=== PATIENT | male | born 1985 | race Caucasian/White ===

== ENCOUNTER 2024-07-12 08:41 | Day surgery (SDC) | payer OTHER ==
[~2024-07-12] VITALS: Ht 181 cm; Wt 71.2 kg
[2024-07-12] VITALS (9 sets, daily range): BP systolic 101–127; BP diastolic 73–87
[~2024-07-12 08:41] MED LIST: BENADRYL25 MG PO; CeFAZolin Sodium 2,000 MG in NS 100 ML IV SCH; FISH OIL 1,2001 EAC7 PO; Lactated Ringer's 1,000 ML IV SCH; MELO7.5 PO; MULVITA PO; Vitamin D1000 UNI1 PO; ZYRTEC10 M2 PO; [UNRECOGNIZED DRUG - OTHER] PO
[2024-07-12] MEDS ORDERED: CeFAZolin Sodium 2,000 MG VIAL ONE (09:23)
--- NOTE | 2024-07-12 09:31 | NUR ---
Patient confirms NPO status and agrees with scheduled surgery. History, Chart, Medications and Allergies reviewed before start of procedure. Mother sitting at bedside with patient. Patient cooperative and follows instructions.
[2024-07-12] MEDS ORDERED: Bupivacaine 0.5% HCl 5 MG/ML 30MLVIAL ONE (09:37)
[2024-07-12] MEDS ORDERED: propofoL 50 ML IV ONE (09:40)
[2024-07-12] MEDS ORDERED: propofoL 40 ML IV ONE (09:43)
[2024-07-12] MEDS ORDERED: Ondansetron HCl 2 MG / ML 2ML Vial ONE (09:44)
[2024-07-12] MEDS ORDERED: Metoclopramide HCl 5MG / ML 2ML Vial ONE (09:44)
[2024-07-12] MEDS ORDERED: Rocuronium Bromide 10 MG/ML 5ML Injection IV ONE (09:44)
[2024-07-12] MEDS ORDERED: Dexamethasone Sod Phos 10 MG/ML 1ML VIAL ONE (09:44)
[2024-07-12] MEDS ORDERED: Sugammadex Sodium 200 MG/2ML SDV (100 MG/ML) ONE (09:45)
[2024-07-12] MEDS ORDERED: HYDROmorphone HCl/Pf 1MG SYR ONE (09:45)
[2024-07-12] MEDS ORDERED: Ketorolac Tromethamine 30mg Vial ONE (09:45)
[2024-07-12] MEDS ORDERED: Acetaminophen 500 MG Tab PO ONE (09:45)
[2024-07-12] MEDS ORDERED: OxyCODONE 5 mg/Acetamin 325 mg TABLET PO PRN (11:50)
--- NOTE | 2024-07-12 12:13 | NUR ---
RECEIVED REPORT FROM [employer] CONSULTANT. VSEdmund. SEE FLOWSHEET. PT DENIES ANY PAIN OR NAUSEA AT THIS TIME. FLUIDS REFUSED FROM PT. PT TOLERATING PUDDING WELL. MOTHER AT BEDSIDE. WILL CONTINUE TO MONITOR.
--- NOTE | 2024-07-12 12:36 | NUR ---
PT REPORTS NO PAIN OR NAUSEA. INCISIONS REMAIN CLEAN DRY AND INTACT. Discharge instructions reviewed with patient. Patient verbalizes understanding. Copy given to patient to take home. MOTHER PRESENT FOR INSTRUCTIONS WELL AND VERBALIZES UNDERSTANDING. BELONGINGS RETURNED TO PT. PT REFUSED PO FLUIDS BUT TOLERATED PUDDING WELL. Discharged via wheelchair to private car for ride home. PT ABLE TO TRANSFER TO INDEPENDENTLY.
== END 2024-07-12 12:45 | disposition home or self-care (01) ==
LOC: ORSCMMR 08:41
DX: K40.90 Unilateral inguinal hernia, without obstruction or gangrene, not specified as recurrent (principal); K41.30 Unilateral femoral hernia, with obstruction, without gangrene, not specified as recurrent; K66.0 Peritoneal adhesions (postprocedural) (postinfection); F84.5 Asperger's syndrome
CPT/HCPCS: A9270; C1781; J0690; J1100; J1171; J1885; J2405; J2704; J2765; J7120

== ENCOUNTER 2024-08-30 07:42 | Day surgery (SDC) | payer OTHER ==
[~2024-08-30] VITALS: Ht 182.9 cm; Wt 72.7 kg
[~2024-08-30 07:42] MED LIST changes: -CeFAZolin Sodium 2,000 MG in NS 100 ML IV SCH; -Lactated Ringer's 1,000 ML IV SCH
[2024-08-30] MEDS ORDERED: ZYRTEC10 M2 (08:13)
[2024-08-30] MEDS ORDERED: Lactated Ringer's 1,000 ML IV ONE ×2 (08:44→09:05)
[2024-08-30] MEDS ORDERED: propofoL 50 ML IV ONE (09:05)
[2024-08-30 10:03] VITALS: BP 113/70
== END 2024-08-30 10:06 | disposition home or self-care (01) ==
LOC: ORSCSDS 07:42
PROVIDERS: Surgery
PROC: 0DJD8ZZ Inspection of Lower Intestinal Tract, Via Natural or Artificial Opening Endoscopic (ICD-10-PCS; principal; 2024-08-30 09:15)
DX: Z12.11 Encounter for screening for malignant neoplasm of colon (principal); F84.0 Autistic disorder; Z79.899 Other long term (current) drug therapy
CPT/HCPCS: J2704; J7120

== ENCOUNTER → 2025-07-10 | Outpatient (CLI) | payer OTHER ==
[~2025-07-10] MED LIST changes: +ZYRTEC10 M2
[2025-07-10 10:25] LABS: BASOPHILS ABSOLUTE AUTO 0.02 K/mm3 (0.00-0.23); BASOPHILS PERCENT AUTO 0 % (0-2); EOSINOPHILS ABSOLUTE AUTO 0.07 K/mm3 (0.00-0.68); EOSINOPHILS PERCENT AUTO 2 % (0-6); Hematocrit 43.0 % (37.0-53.0); Hemoglobin 14.3 g/dL (13.5-17.5); IMMATURE GRAN ABSOLUTE AUTO 0.01 K/mm3 (0.00-0.10); IMMATURE GRAN PERCENT AUTO 0 % (0-1); LYMPHOCYTES ABSOLUTE AUTO 1.77 K/mm3 (0.84-5.20); LYMPHOCYTES PERCENT AUTO 39 % (21-46); MONOCYTES ABSOLUTE AUTO 0.41 K/mm3 (0.16-1.47); MONOCYTES PERCENT AUTO 9 % (4-13); Mean Corpuscular HGB Conc 33.3 g/dL (31.5-36.5); Mean Corpuscular Volume 95 fL (80-100); NEUTROPHILS ABSOLUTE AUTO 2.23 K/mm3 (1.96-9.15); NEUTROPHILS PERCENT AUTO 50 % (41-73); NRBC ABSOLUTE 0.00 K/mm3 (0.00-0.02); NRBC Auto 0.0 /100 WBC (0.0-0.2); Platelet Count 195 K/mm3 (150-400); RDW Coefficient Variation 12.8 % (11.7-14.2); RDW Standard Deviation 44.5 fL (35.1-46.3)
[2025-07-10 10:50] LABS: Alanine Aminotransfer (ALT/SGP 24 U/L (12-78); Albumin, Blood 4.0 g/dL (3.4-5.0); Albumin/Globulin Ratio 1.0 (0.8-1.8); Anion Gap 10 mmol/L (3-11); Aspartate Aminotrans (AST/SGOT 18 U/L (12-37); Bilirubin, Total 0.5 mg/dL (0.1-1.0); Blood Urea Nitrogen 21 mg/dL (8-24); CHOL/HDL RATIO 3.3; CO2, Blood 31 mmol/L (21-32); Calcium, Blood 9.3 mg/dL (8.5-10.1); Chloride, Blood 103 mmol/L (98-108); Cholesterol 212 mg/dL (50-200); Creatinine, Blood 1.10 mg/dL (0.60-1.20); Globulin, Blood 3.9 g/dL (2.2-4.0); Glucose, Blood 95 mg/dL (70-99); HDL Cholesterol 65 mg/dL (>39); LDL/HDL RATIO 2.1; Low Density Lipoprotein Chol 138 mg/dL (<110); Potassium, Blood 4.4 mmol/L (3.5-5.5); Sodium, Blood 140 mmol/L (136-145); Thyroid Stimulating Hormone 1.349 uIU/mL (0.360-4.800); Total Protein, Blood 7.9 g/dL (6.4-8.2); Triglycerides 47 mg/dL (30-160); Very Low Density Lipoprot Chol 9 mg/dL (6-32)
== END ==
LOC: LAB SHORT 10:05 → LAB 10:05
PROVIDERS: Family Medicine
DX: E78.00 Pure hypercholesterolemia, unspecified (principal)
CPT/HCPCS: 36415; 80053; 80061; 84443; 85025